=== PATIENT | female | born 1950 | race Caucasian/White ===

== ENCOUNTER → 2017-08-03 | Outpatient (CLI) | payer MEDICARE ==
[~2017-08-03] MED LIST: ALPR.25 PO; ALPR0.25 PO; CARI1TAB34 PO; HYDR-3580 PO; METO50TA PO; PERC5TAB12 PO; RIVA10 PO; SOMA350T PO; SUMA50TA2 PO; ULTR50TA PO; Z.0.COMMODE-3:1; Z.0.CPM
--- NOTE | 2017-08-03 19:19 | EKG ---
Date Performed: 08/03/2017 Time Performed: 08:28:04 PTAGE: 67 years EKG: Sinus rhythm NORMAL ECG NO PREVIOUS TRACING DOCTOR: Herbert Carrillo Interpretating Date/Time 08/03/2017 19:15:30
== END ==
LOC: CPRE 08:08
PROVIDERS: ATTEND Orthopaedic Surgery
DX: Z01.810 Encounter for preprocedural cardiovascular examination (principal); M17.11 Unilateral primary osteoarthritis, right knee; M79.609 Pain in unspecified limb; I10 Essential (primary) hypertension
CPT/HCPCS: 93005

== ENCOUNTER 2017-08-14 07:08 | Inpatient (IN) | payer MEDICARE ==
[~2017-08-14] VITALS: Ht 152.4 cm; Wt 83.1 kg
[~2017-08-14 07:08] MED LIST changes: -ALPR.25 PO; -CARI1TAB34 PO; -PERC5TAB12 PO; -RIVA10 PO; -SUMA50TA2 PO; -ULTR50TA PO; -Z.0.COMMODE-3:1; -Z.0.CPM
[2017-08-14] MEDS ORDERED: BUPIVACAINE PF 0.75% DEX-WATER INJ 2 ML AMP ONE (07:25)
[2017-08-14] MEDS ORDERED: LACTATED RINGER'S 1000 ML IV PRN (08:00)
[2017-08-14] MEDS ORDERED: CHLORHEXIDINE GLUCONATE 2 % 1 PACK (2 CLOTHS) TOPICAL PRN (08:00)
[2017-08-14] MEDS ORDERED: TRANEXAMIC ACID IV SCH ×2 (08:00→11:00)
[2017-08-14] MEDS ORDERED: CHLORHEXIDINE GLUCONATE 4% SOLN 120 ML BTL TOPICAL SCH (08:00)
[2017-08-14] MEDS ORDERED: EXPAREL PERI-ARTICULAR INJECTION (TOTAL VOL. 100 ML) P-ARTICULR SCH ×2 (08:00)
[2017-08-14] MEDS ORDERED: SODIUM CHLORIDE 0.9% IV SCH ×2 (08:00→11:00)
[2017-08-14] MEDS ORDERED: POVIDONE IODINE 5% (ANTISEPSIS KIT) 4 APPLICATIONS EACH NARE PRN (08:00)
[2017-08-14] MEDS ORDERED: SODIUM CHLORID 0.9% 500 ML IV PRN (08:00)
[2017-08-14] MEDS ORDERED: METOPROLOL TARTRATE 25 MG TAB PO PRN (08:00)
[2017-08-14] MEDS ORDERED: BUPIVACAINE LIPOSOME PF 1.3% 20 ML VIAL ONE (08:29)
[2017-08-14] MEDS ORDERED: MIDAZOLAM HCL 5 MG/5 ML VIAL ONE (08:29)
[2017-08-14] MEDS ORDERED: GENTAMICIN SULFATE 80 MG/2 ML VIAL ONE (08:56)
[2017-08-14] MEDS ORDERED: CEFAZOLIN INJ 2,000 MG in SODIUM CHLORIDE 0.9% INJ 100 ML IV ONE (09:00)
[2017-08-14] MEDS ORDERED: ceFAZolin INJ 1,000 MG VIAL ONE (09:06)
--- NOTE | 2017-08-14 09:26 | HHI.FF ---
Face to Face Verification Diagnosis: (1) Status post total right knee replacement Physical Therapy Gait training Knee: Total knee, Protocol: Right, Gait training, Full weight bearing Right LE Weight Bearing: WB as tolerated Right LE Range of Motion: Active ROM (active, active-assisted and passive range of motion. Range of motion goal is 0 extension to 120 of flexion.) Nursing Nursing: Dressing changes Dressing Changes: Daily dressing change (do not remove Dermabond Prineo.), Coverderm/Primapore I have seen patient Kellie Guardado on 08/14/17. My clinical findings support the need for the requested home health care services because: Ltd mobility - disease progression Limited ability to care for self High risk of falls I certify that my clinical findings support that this patient is homebound because: Post-op weakness Unsteady gait/balance Unsafe to leave home unassisted Mercedez Schilling MD (Charles) Aug 14, 2017 09:26
[2017-08-14] MEDS ORDERED: TRANEXAMIC ACID INJ 0 MG in SODIUM CHLORIDE 0.9% INJ 100 ML IV SCH (09:30)
[2017-08-14] MEDS ORDERED: ONDANSETRON HCL 4 MG/2 ML VIAL IVP PRN (09:30)
[2017-08-14] MEDS ORDERED: ALPRAZolam 0.25 MG TAB PO PRN (09:30)
[2017-08-14] MEDS ORDERED: MAGNESIUM HYDROXIDE SUSP 30 ML CUP PO PRN (09:30)
[2017-08-14] MEDS ORDERED: CARISOPRODOL 350 MG TAB PO PRN (09:30)
[2017-08-14] MEDS ORDERED: KETOROLAC TROMETHAMINE 30 MG/ML (IVP) VIAL IVP SCH (09:30)
[2017-08-14] MEDS ORDERED: MORPHINE SULFATE 4 MG/ML INJ IV PUSH PRN (09:30)
[2017-08-14] MEDS ORDERED: PROPOFOL 500 MG/50 ML INJ 50 ML ONE (09:37)
[2017-08-14] MEDS ORDERED: Post-op Orders (for Pharmacy) XX ONE (10:00)
[2017-08-14] MEDS ORDERED: ACETAMINOPHEN 1000 MG/100 ML 100 ML IV ONE (10:05)
[2017-08-14] MEDS ORDERED: FAMOTIDINE 20 MG/2 ML VIAL ONE (10:05)
--- NOTE | 2017-08-14 10:05 | PD.CONS ---
HPI Service [facility] Hospitalists Consult Requested By Dr. Schilling Reason for Consult Post-operative medical management Primary Care Physician Rolf Kern MD Diagnoses: History of Present Illness This is a pleasant 67 y/o female with a past medical history which includes hypertension, anxiety and OA os the left Knee. Patient underwent a right knee arthroplasty today with Dr. Schilling. Then consulted to assist with postoperative medical management. Patient evaluated in post anesthesia care unit slightly groggy postanesthesia there for information gathered from patient physical exam as well as prior charting. Patient offers no specific complaints at this time denies shortness of breath chest pain nausea vomiting fevers or chills. Patient reports intact sensation and able to move bilateral lower extremities Review of Systems ROS Limitations: Clinical Condition Past Family Social History Past Medical History Hypertension anxiety OA of the left knee Past Surgical History Tonsillectomy Ectopic D and C Reported Medications Alprazolam 0.25 Mg Tab 0.25 Mg PO BID PRN Metoprolol Tartrate 50 Mg Tab 50 Mg PO BID Soma (Carisoprodol) 350 Mg Tab 350 Mg PO TID PRN Hydrocodone-Acetamin 7.5-325 (Hydrocodone/Acetaminophen) 7.5 Mg-325 Mg Tablet 15 Tab PO DAILY Allergies: Coded Allergies: meperidine (Unverified Adverse Reaction, Intermediate, ITCHING, WAKES PT UP, 08/14/17) Family History Father with Hypertension and Leukemia Mother with DM II, CAD, RA Social History Lives with her , works as a INDUSTRIAL EDUCATION TEACHER, denies ETOH use, tobacco use or illicit drug use Physical Exam Vital Signs Vital Signs Date Time Temp Pulse Resp B/P (MAP) Pulse Ox O2 Delivery O2 Flow Rate FiO2 08/14/17 08:11 Nasal Cannula 2 08/14/17 08:09 98.3 78 20 136/75 (95) 99 Physical Exam GENERAL: This is a well-nourished, well-developed patient, drowsy post anesthesia but in no acute distress SKIN: Post-op dressing dry and intact HEAD: Atraumatic. Normocephalic. No temporal or scalp tenderness. EYES: Extraocular motions intact. No scleral icterus. No injection or drainage. CARDIOVASCULAR: Regular rate and rhythm RESPIRATORY: Clear to auscultation. Breath sounds equal bilaterally. GASTROINTESTINAL: Abdomen soft, non-tender, nondistended. MUSCULOSKELETAL: Extremities without clubbing, cyanosis, or edema. No joint tenderness, effusion, or edema noted. No calf tenderness. Negative Homans sign bilaterally. NEUROLOGICAL: Awake and alert. No focal deficits. Motor and sensory grossly within normal limits. Five out of 5 muscle strength in all muscle groups, with the exception of post-op RLE. Assessment and Plan Problem List: (1) Primary osteoarthritis of right knee ICD Codes: M17.11 - Unilateral primary osteoarthritis, right knee Plan: Patient S/P right knee arthroplasty with Dr. Schilling (08/14) Jennings as needed for pain Toradol 15 mg IVP Q6H Colace 100 mg PO BID anticoagulation per orthopedic surgery DVT prophylaxis SCDs, further anticoagulation per orthopedic surgery (2) HTN (hypertension) ICD Codes: I10 - HTN (hypertension) Status: Acute Plan: Continue patient's home Metoprolol 50 mg PO BID monitor BP (3) Anxiety ICD Codes: F41.9 - Anxiety disorder, unspecified Plan: Continue patient's home Alprazolam 0.25 mg BID as needed for anxiety Assessment and Plan Patient examined. Assessment and plan formulated with Marina Paris PA-C. I agree with the above. right tka. medically stable. Marina Paris Aug 14, 2017 10:05 Kodak John MD Aug 14, 2017 16:34
[2017-08-14] MEDS ORDERED: PROPOFOL 200 MG/20 ML AMP IV ONE (12:00)
[2017-08-14] MEDS ORDERED: KETOROLAC TROMETHAMINE 30 MG/ML (IVP) VIAL IV PUSH ONE (12:00)
[2017-08-14] MEDS ORDERED: DEXAMETHASONE SOD PHOS 4 MG/ML VIAL IV ONE (12:00)
[2017-08-14] MEDS ORDERED: LACTATED RINGER'S 1000 ML INJ 1,000 ML IV ONE (12:00)
[2017-08-14] MEDS ORDERED: PHENYLEPH/NS 1000 MCG/10 ML SYR IV ONE (12:00)
[2017-08-14] MEDS ORDERED: ONDANSETRON HCL 4 MG/2 ML VIAL IV ONE (12:00)
[2017-08-14] MEDS ORDERED: LIDOCAINE HCL 1% PF 5 ML SYRINGE OTHER ONE (12:00)
--- NOTE | 2017-08-14 12:18 | PD.OP ---
Operative Report Date of Surgery: Aug 14, 2017 Preoperative Diagnosis: (1) Primary osteoarthritis of right knee Postoperative Diagnosis: (1) Primary osteoarthritis of right knee Procedure: A total knee arthroplasty with [place] Triathlon prosthesis (uncemented). Anesthesia: Spinal with supplemental adductor canal block regional and local with Exparel Surgeon: Amando Schilling M.D. Report Specialist(s): ABELARDO Burroughs Operation and Findings: Indications and Findings: This 67-year-old woman has had at least 4 years of right knee pain, nonresponsive to conservative measures including nonsteroidal anti-inflammatory agents, analgesics, exercise, activity modification and ambulatory aids. Her ambulation tolerance is one half block because of pain. She has difficulty standing from a seated position and has episodic locking, clicking and swelling. Physical findings show genu valgum with medial laxity, medial crepitation and medial tenderness with diffuse crepitation throughout the knee. Severe osteoarthritis is noted on the radiographs with loss of articular cartilage to bone on bone in the medial compartment, tricompartmental osteophytes, eburnation medially. Operative findings: There was tricompartmental arthritis in the knee consistent with osteoarthritis. The major involvement was the medial compartment with loss of articular cartilage to subchondral bone. There were osteophytes in the medial, lateral and patellofemoral compartments. The prosthesis used was a [place] Triathlon prosthesis. The femur was a size 4, cruciate retaining, uncemented. The tibial baseplate was a size 4 Tritanium with a 9 mm X3 polyethylene cruciate retaining spacer. The patella was a size 32 mm asymmetric Tritanium backed. The patient was brought to the clean-air operating suite after an adductor canal block regional had been performed. A spinal anesthetic was administered. The position was supine with a small bolster under the hip on the operative side. A pneumatic tourniquet was applied to the upper thigh. The lower extremity was then prepped with alcohol, Hibiclens and ChloraPrep and draped in the usual manner with the knee draped free. An appropriate timeout procedure was carried out. An incision was made from about 3 fingerbreadths above the superior medial pole of patella down the tibial tubercle on the medial side. The incision was deepened through the subcutaneous tissue to the retinacular structures which were exposed medially and laterally. A medial retinacular incision was then made from the superior middle pole of patella down the tibial tubercle and up into the quadriceps tendon splitting it longitudinally and the medial one third. The patella was reflected. The infrapatellar fat pad was debulked. The anterior cruciate ligament was excised. Medial and lateral meniscectomies were initiated. A fenestration was made in the distal femur for the intramedullary referencing guide. A fenestration was made in the proximal tibia for the intramedullary referencing guide. The distal femoral cutting guide and jig were then assembled for a 5, 8 mm cut. When this was in position, the cutting block was stabilized with pins. The jig was removed. The distal femoral cut was then completed with the oscillating saw. The sizing guide was then positioned in place along Whitesides line and the epicondylar axis and stabilized with pins. The femoral size was then determined with the sizing guide. The 4-in-1 cutting block was then positioned in place. Anterior and posterior cuts were made followed by posterior and anterior chamfer cuts taking care to prevent injury to ligamentous structures. Osteophytes were then trimmed from the distal femur. A bone plug was then placed into the fenestration of the distal femur. The proximal tibia was then exposed. The medial and lateral meniscectomies were completed. The proximal tibial cutting guide was then positioned in place and stabilized with a pin for rotation. The depth of cut was then verified with a stylus referencing from the predetermined side. The cutting block was stabilized with pins. The jig was removed. The depth of cut was then verified and adjusted appropriately with the use of the spacer block. The proximal tibial cut was then made with the oscillating saw taking care to prevent injury to neurovascular and ligamentous structures. Proximal tibial bone was removed. Local anesthetic was administered with Exparel in the posterior capsule. The tibial baseplate trial was then positioned in place. After verifying the appropriate size, the base plate trial was positioned in place along with its spacer. The trial femoral component was then impacted into place. The alignment was checked. The trial tibial baseplate was then pinned in place on the tibia. Attention was directed to the patella. The patella drill guide was positioned in place for the appropriate sized patella. Patellar drilling was then carried out. The trial patella was positioned in place. The knee was taken through a range of motion which was easily 0 extension to 120, limited by posterior soft tissues. The patella trial was removed. The femoral drill holes were made. The femoral trial prosthesis was removed. The tibial spacer was removed. A bone plug was placed into the proximal tibia. The tibial punch was impacted through the proximal tibial punch guide. This was all removed followed by placement of the tibial drill guide. The tibial drill holes were then made. The guide was removed. The cut ends of bone were then cleaned with pulse lavage. The tibial baseplate was then impacted into place and seated appropriately. The spacer was inserted. The the femoral component was then impacted into place and seated appropriately. The patella component was then seated with the patellar vice and tightened appropriately. The knee was taken through a range of motion which was comparable to the previous range of motion with excellent stability in flexion and extension and appropriate patellofemoral tracking. The remainder of the Exparel was then injected throughout the knee as a local anesthetic. Drains were brought out the superior lateral aspect of the suprapatellar pouch. Wound closure then commenced using 0 Vicryl interrupted [id number] sutures for the capsular and fascial structures, 2-0 Vicryl interrupted simple sutures with buried knots for the subcutaneous tissues and 4- 0 Monocryl, tenuous subcuticular closure for the skin. The wound was then dressed with Dermabond Prinio followed by dry dressing, sterile soft roll with a cooling pad and Eldon bandage from the base of the toes to mid thigh were then applied. Patient was then transferred from the operating room to the recovery room in satisfactory condition having tolerated procedure well. Counts are correct. Specimens: None. Estimated blood loss: 150 mL Mercedez Schilling MD (Charles) Aug 14, 2017 12:18
[2017-08-14] MEDS ORDERED: DO NOT ADM ANY ANTICOAGULANT DRUGS PRN (12:28)
[2017-08-14] MEDS ORDERED: HYDR-3580 PO (12:29)
[2017-08-14] MEDS ORDERED: ECASA81 PO (12:29)
[2017-08-14] MEDS: LACTATED RINGER'S 1000 ML INJ 1,000 ML IV SCH ×2 (12:45→21:50)
[2017-08-14] MEDS ORDERED: *morphine SULFATE 4 MG/ML PERIprocedure ONLY ONE (13:11)
--- NOTE | 2017-08-14 13:23 | RADRPT ---
EXAM DATE/TIME: 08/14/2017 12:53 [place] COMPARISON: No previous studies available for comparison. INDICATIONS : Post-op right total knee arthroplasty. MEDICAL HISTORY : None. SURGICAL HISTORY : Total knee replacement, left. ENCOUNTER: Initial ACUITY: 1 day PAIN SCORE: 0/10 LOCATION: Right knee FINDINGS: There is a right total knee arthroplasty appears intact and normally aligned. Suprapatellar surgical drain present. No other radiopaque foreign bodies are seen. No fractures are demonstrated. No acute c omplication demonstrated. CONCLUSION: Expected radiographic appearance right total knee arthroplasty. Ronnie Mckee MD on August 14, 2017 at 13:20 Board Certified Radiologist. This report was verified electronically.
[2017-08-14] MEDS ORDERED: *morphine SULFATE 8 MG/ML PERIprocedure ONLY ONE (13:28)
[2017-08-14] MEDS ORDERED: *ONDANSETRON 4 MG VIAL PERIprocedural Use ONLY ONE (13:28)
[2017-08-14 15:58] VITALS: BP 134/68; PULSE 73; RESP 18; TEMP 97.3; O2SAT 95
[2017-08-14] MEDS: KETOROLAC TROMETHAMINE 30 MG/ML (IVP) VIAL IVP SCH (16:09)
[2017-08-14] MEDS: ACETAMINOPHEN/HYDROcodone 325 MG/7.5 MG TAB PO PRN ×3 (16:10→22:01)
[2017-08-14 20:24] VITALS: BP 119/57; PULSE 71; RESP 18; TEMP 96.4; O2SAT 95
[2017-08-14] MEDS ORDERED: ZOLPIDEM TARTRATE 5 MG TAB PO PRN (21:00)
[2017-08-14] MEDS ORDERED: METOPROLOL TARTRATE 50 MG TAB PO SCH (21:00)
[2017-08-14 23:37] VITALS: BP 102/52; PULSE 80; RESP 17; TEMP 98.1; O2SAT 95
[2017-08-15 04:00] VITALS: BP 113/59; PULSE 98; RESP 18; TEMP 97.5; O2SAT 96
[2017-08-15] MEDS: ACETAMINOPHEN/HYDROcodone 325 MG/7.5 MG TAB PO PRN ×3 (04:30→12:22)
[2017-08-15] MEDS: KETOROLAC TROMETHAMINE 30 MG/ML (IVP) VIAL IVP SCH ×3 (05:32→10:45)
[2017-08-15 05:40] LABS: HEMATOCRIT 32.6 % (35.0-46.0); HEMOGLOBIN 11.1 GM/DL (11.6-15.3)
--- NOTE | 2017-08-15 06:49 | PD.ORT.PN ---
Subjective Post Op Day #: 1 Subjective Remarks She is doing well. She does have some pain in the knee. She has been up walking with her daughter. Range of Motion 0 extension to 70 of flexion. Distance Walked 2 feet with therapy. Objective Vitals Vital Signs Date Time Temp Pulse Resp B/P (MAP) Pulse Ox O2 Delivery O2 Flow Rate FiO2 08/15/17 06:05 20 08/15/17 05:48 18 08/15/17 04:00 97.5 98 18 113/59 (77) 96 08/14/17 23:49 Room Air 08/14/17 23:37 98.1 80 17 102/52 (69) 95 08/14/17 20:24 96.4 71 18 119/57 (77) 95 08/14/17 15:58 97.3 73 18 134/68 (90) 95 08/14/17 15:00 97.4 64 17 124/68 (86) 99 Nasal Cannula 2 08/14/17 14:00 66 23 129/74 (92) 98 Nasal Cannula 2 08/14/17 13:30 63 18 128/77 (94) 99 Nasal Cannula 2 08/14/17 13:15 62 18 120/69 (86) 100 Nasal Cannula 4 08/14/17 13:00 71 19 125/61 (82) 99 Nasal Cannula 4 08/14/17 12:45 70 17 107/67 (80) 99 Nasal Cannula 4 08/14/17 12:30 97.3 84 19 98/62 (74) 99 Nasal Cannula 4 08/14/17 08:11 Nasal Cannula 2 08/14/17 08:09 98.3 78 20 136/75 (95) 99 I/O 08/14/17 08/14/17 08/14/17 08/15/17 08/15/17 08/15/17 07:00 15:00 23:00 07:00 15:00 23:00 Intake Total 1400 ml Output Total 200 ml 50 ml 50 ml Balance 1200 ml -50 ml -50 ml Intake IV Total 1400 ml Output Drainage Total 50 ml 50 ml 50 ml Estimated Blood Loss 150 ml # Voids 1 Result Diagram: 08/15/17 0453 Imaging Last 24 hours Impressions Knee X-Ray 08/14/17 0944 Signed Impressions: Service Date/Time: Monday, August 14, 2017 12:53 - CONCLUSION: Expected radiographic appearance right total knee arthroplasty. Ronnie Mckee MD Objective Remarks She is resting comfortably, supine in bed, in the CPM. The dressing is dry and intact. The neurovascular status is intact. Assessment & Plan Ortho Post Op Day #: 1 Problem List: (1) Status post total right knee replacement ICD Codes: Z96.651 - Presence of right artificial knee joint Plan: Continue postoperative care and PT. (2) Primary osteoarthritis of right knee ICD Codes: M17.11 - Unilateral primary osteoarthritis, right knee Status: Resolved Assessment and Plan Condition: Good. Orthopedically stable. DVT prophylaxis: Sequentials, KYRA stockings, aspirin 81 mg twice daily. Discharge plans: Home with home health care. An appointment was scheduled through the office. Prescriptions: [place] 7.5/325 eMrcedez Schilling MD (Charles) Aug 15, 2017 06:49
--- NOTE | 2017-08-15 07:36 | HHI.DS ---
Discharge Summary Admission Date Aug 14, 2017 at 07:08 Discharge Date: Aug 15, 2017 Admitting Diagnosis Primary osteoarthritis, right knee. Diagnosis: (1) Status post total right knee replacement Diagnosis: Principal ICD Codes: Z96.651 - Presence of right artificial knee joint (2) Primary osteoarthritis of right knee Diagnosis: Principal ICD Codes: M17.11 - Unilateral primary osteoarthritis, right knee Status: Resolved Procedures Right total knee arthroplasty using [place] Triathlon prosthesis (uncemented) on 08/14/2017. Brief History This is a 67 year old female patient who has had long-standing pain in her right knee nonresponsive to conservative measures as detailed in the history and physical examination. Her ambulation tolerance diminished significantly. This interfered with activities of daily living. Physical findings show degenerative varum with medial tenderness and medial laxity. There is crepitation throughout the entire range of motion. X-rays showed loss of joint space to [id number] in the medial compartment with osteophytes diffusely. CBC/BMP: 08/15/17 0453 Significant Findings Laboratory Tests Test 08/15/17 04:53 Hemoglobin 11.1 GM/DL (11.6-15.3) Hematocrit 32.6 % (35.0-46.0) Imaging Last 72 hours Impressions Knee X-Ray 08/14/17 0920 Signed Impressions: Service Date/Time: Monday, August 14, 2017 12:53 - CONCLUSION: Expected radiographic appearance right total knee arthroplasty. Ronnie Mckee MD PE at Discharge She is resting comfortably, supine in bed, in the CPM. The dressing is dry and intact. The neurovascular status is intact. Hospital Course The patient was admitted as noted above. The above noted operative procedure was carried out that day. Preoperatively prophylactic antibiotics were administered Ancef according to protocol. These were continued postoperatively. The patient also received tranexamic acid to help with hemostasis according to protocol. In the postanesthesia care unit a continuous passive motion device was initiated. Also initiated were mechanical methods of DVT prophylaxis in the form of KYRA stockings and sequentials. Physical therapy was initiated on the day of surgery. On postoperative day #1 physical therapy continued. The use of the continuous passive motion device continued. DVT prophylaxis with aspirin 81 mg twice daily was initiated at this time. The patient continued physical therapy throughout the hospitalization. The distance walked and range of motion improved throughout the hospitalization. The patient was discharged on postoperative day 1 with the disposition being to home with home health care. An appointment for follow-up was made prior to admission. Pt Condition on Discharge: Good Discharge Disposition: Disch w/ Home Health Serv Discharge Instructions Diet Instructions: As Tolerated, No Restrictions Activities You Can Perform: Full Weight Bearing, Shower Only-No Bath Activities to Avoid: Lifting/Bending, Strenuous Activity, Bathing, Driving Follow up Referrals: Orthopedics with Mercedez Schilling MD (Charles) New Medications: Aspirin DR (Aspirin DR) 81 Mg Tabdr 81 MG PO BID for Prevent Blood Clot for 30 Days, #60 TAB Hydrocodone/Acetaminophen (Hydrocodone-Acetamin 7.5-325) 7.5 Mg-325 Mg Tablet 2 TAB PO Q4H PRN for PAIN SCALE 1 TO 10, #30 TAB Continued Medications: Alprazolam (Alprazolam) 0.25 Mg Tab 0.25 MG PO BID PRN for ANXIETY, TAB 0 Refills Carisoprodol (Soma) 350 Mg Tab 350 MG PO TID PRN for MUSCLE SPASM, TAB 0 Refills Hydrocodone/Acetaminophen (Hydrocodone-Acetamin 7.5-325) 7.5 Mg-325 Mg Tablet 15 TAB PO DAILY Metoprolol Tartrate (Metoprolol Tartrate) 50 Mg Tab 50 MG PO BID, #60 TAB 0 Refills Mercedez Schilling MD (Charles) Aug 15, 2017 07:36
[2017-08-15 08:00] VITALS: BP 102/54; PULSE 83; RESP 18; TEMP 97.3; O2SAT 94
[2017-08-15 12:00] VITALS: BP 110/58; PULSE 85; RESP 18; TEMP 97.6; O2SAT 95
[2017-08-15] MEDS ORDERED: ASPIRIN EC 81 MG TABEC PO SCH (12:00)
[2017-08-15] MEDS ORDERED: DOCUSATE SODIUM 100 MG CAP PO SCH (21:00)
== END 2017-08-15 13:25 | disposition home health service (06) | DRG 470 ==
LOC: HSDI 07:08 → N06B 15:31
PROVIDERS: ADMIT Orthopaedic Surgery; ATTEND Orthopaedic Surgery
PROC: 3E0T3BZ Introduction of Anesthetic Agent into Peripheral Nerves and Plexi, Percutaneous Approach (ICD-10-PCS; 2017-08-14)
PROC: 0SRC0JA Replacement of Right Knee Joint with Synthetic Substitute, Uncemented, Open Approach (ICD-10-PCS; principal; 2017-08-14 09:44)
DX: M17.11 Unilateral primary osteoarthritis, right knee (principal); I10 Essential (primary) hypertension; F41.9 Anxiety disorder, unspecified; M21.061 Valgus deformity, not elsewhere classified, right knee; Z79.899 Other long term (current) drug therapy
CPT/HCPCS: 73560; 85014; 85018; 86850; 86900; 86901; C1776; C9290; J0131; J0690; J1100; J1580; J1885; J2250; J2270; J2370; J2405; J7120